=== PATIENT | male | born 1985 | race Caucasian/White ===

== ENCOUNTER 2016-06-27 20:55 | Inpatient (IN) | payer BC ==
--- NOTE | ~2016-06-27 | DS ---
Unit #: [id number] #: [id number] Patient: BAY DORSEY [id number] [place] [address] [id number] I MR#: [id number] NAME: BAY DORSEY ROOM: [facility] Age: 31 Sex: M Admission Date: 06/27/2016 : 1985 Discharge Date: Attending Physician: Rose Wallace M.D. Primary Care Physician: Primary Care Physician No DISCHARGE SUMMARY IDENTIFYING DATA Mr. Dorsey is a 31-year-old single white male, who is a resident of [place], [place] and was self-referred to the hospital on a voluntary basis. DISCHARGE DIAGNOSES Psychiatric: Alcohol dependence, moderate, in acute withdrawal; alcohol-induced mood disorder. Medical: Hypertension. Stressors: Moderate psychosocial stressors. HISTORY OF PRESENT ILLNESS Please see initial psychiatric evaluation for details. PAST PSYCHIATRIC HISTORY Please see initial psychiatric evaluation for details. PAST MEDICAL HISTORY Please see initial psychiatric evaluation for details. HOSPITAL COURSE The patient was admitted to the adult chemical dependency unit at [facility] yaneli Re[facility] and was oriented to the hospital environment. Routine p.r.n. medications were initiated, and he was started back on his home medications. Medications were adjusted and was closely monitored. He was taking medications regularly and was tolerating them fairly well and was able to show a decent therapeutic response and was willing to continue treatment on an outpatient basis. DISCHARGE MEDICATIONS Zestril 20 mg a day for hypertension, and Oretic 12.5 mg a day for hypertension. DISCHARGE CONDITION Stable. PROGNOSIS Fair. Dictated by... Rose Wallace M.D. IAA/modl Unit #: [id number] #: [id number] Patient: BAY DORSEY TD: 06/30/2016 06:47 JOB #: [id number] DISCHARGE SUMMARY Page 1 of 1 X Rose Wallace MD X DISCHARGE SUMMARY
--- NOTE | ~2016-06-27 | PN ---
Unit #: [id number] #: [id number] Patient: BAY DORSEY [id number] [facility] [address] [place] [address] [id number] I MR#: [id number] NAME: BAY DORSEY ROOM: P174 Age: 31 Sex: M Admission Date: 06/27/2016 : 1985 Attending Physician: Rose Wallace M.D. Admitting Physician: Rose Wallace M.D. Primary Care Physician: Primary Care Physician Evie ARTEAGA PROGRESS NOTES DATE 06/29/2016 DISCUSSION Mr. Dorsey is a 31-year-old white male who was seen today and chart was reviewed and case was discussed with the staff. He has been doing fairly well and reports that he feels he is coming out of the detox without any complications. He has been taking medications and tolerating them fairly well with no reported side effects. MENTAL STATUS EXAMINATION Young white male who was casually dressed with fair personal hygiene and appears to be in no acute distress or discomfort. He was awake and alert on interaction with intact orientation. His mood was anxious with congruent affect. He denies any suicidal or homicidal ideations and also denies any auditory or visual hallucinations. His insight and judgement remains slightly impaired. TREATMENT PLAN 1. Will continue on his current medications and treatment protocol. Will monitor his response and make further adjustments as needed. 2. Will continue to follow up. Dictated by... Rose Wallace M.D. IAA/bam TD: 06/29/2016 15:38 JOB #: [id number] Unit #: [id number] #: [id number] Patient: BAY DORSEY JENNI PROGRESS NOTES Page 1 of 1 X Rose Wallace MD PROGRESS NOTE
--- NOTE | ~2016-06-27 | PA ---
Unit #: [id number] #: [id number] Patient: BAY DORSEY [id number] [facility] [address] [place] [address] [id number] MR#: [id number] NAME: BAY DORSEY ROOM: P174 Age: 31 Sex: M Admission Date: 06/27/2016 : 1985 Date of Assessment: Attending Physician: Rose Wallace M.D. Admitting Physician: Rose Wallace M.D. Primary Care Physician: Primary Care Physician No PSYCHIATRIC ASSESSMENT IDENTIFYING DATA Mr. Dorsey is a 31-year-old white male, who is a resident of [place], [place] and was self-referred to the hospital on a voluntary basis. CHIEF COMPLAINT "My alcohol abuse." HISTORY OF PRESENT ILLNESS Mr. Dorsey is a 31-year-old white male, who was self-referred to the hospital. Upon presentation, he reports significant history of alcohol abuse and had a blood alcohol level of 0.058 and a CIWA score of 16, stating that he has been drinking approximately 12 pack of beer and a fourth pint of vodka a day for the past 3 years and has significant withdrawal symptoms with shakes and stress and difficulty concentrating, racing thoughts, and feelings of burning sensation like "pins and needles." He reports that he drank a pint of vodka today and reports consuming 2 pain pills and 2 days ago attempted to self detox and also reports increasing depression, feelings of hopelessness and helplessness, and suicidal ideation with a plan to shoot himself on the head with a gun, was seen to be a danger to self and as such, recommendation for inpatient level of care was made and the patient was transferred to us. SUBSTANCE ABUSE HISTORY The patient reports history of alcohol, opioid and amphetamine abuse and the alcohol appears to be his drug of choice and reports that he has been drinking regularly and heavily. PAST PSYCHIATRIC HISTORY The patient has had a history of inpatient chemical dependency and rehabilitation treatment in [place]. Review of the medical records indicate currently he is not active in any treatment program, is not seeing a psychiatrist, and is not taking any psychotropic medications. PAST MEDICAL HISTORY Hypertension. ALLERGIES No known medication allergies. PERSONAL AND SOCIAL HISTORY A 31-year-old white male, who reports that he is single, unemployed, and lives with his sister and sister's boyfriend and is currently unemployed Unit #: [id number] #: [id number] Patient: BAY DORSEY and reports poor social support system. MENTAL STATUS EXAMINATION Young white male, who was casually dressed with fair personal hygiene, appears to be in no acute distress or discomfort. He was awake and alert on interaction with intact orientation to time, place, and person. His mood was anxious and depressed with a congruent affect. Speech was slow and restricted in content. His thought processes were disorganized with some looseness of associations and suicidal ideations. His insight and judgment remain significantly impaired. DIAGNOSTIC IMPRESSION Psychiatric: Alcohol dependence, moderate and acute withdrawals; alcohol-induced mood disorder. Medical: Hypertension. Stressors: Moderate psychosocial stressors. TREATMENT PLAN 1. The patient has presented with a history of substance abuse and mood disorder, and has been decompensating and will need inpatient hospitalization for detoxification, safety, and stabilization. We will start him on detox protocol. We will monitor for any worsening withdrawal symptoms. 2. Supportive therapy was provided to the patient. 3. Safe, structured, and nourishing environment will be provided. ESTIMATED LENGTH OF STAY 5 to 7 days. ABILITY TO HELP SELF Limited. WILLINGNESS TO HELP SELF The patient appears to be willing to help self. STRENGTHS 1. Communicative. 2. Cooperative. PROBLEMS 1. Chronic dysphoric symptoms. 2. Chronic chemical dependency. 3. Poor social support system. DISCHARGE CRITERIA This will be contingent upon the patient's ability to go through detox without having any significant withdrawal symptoms and his ability to stay safe to himself, particularly after discharge from the hospital. Dictated by... Romelia Mathew/nathanael TD: 06/28/2016 06:49 JOB #: [id number] Unit #: [id number] #: [id number] Patient: BAY DORSEY PSYCHIATRIC ASSESSMENT Page 1 of 1 X Rose Wallace MD X PSYCHIATRIC ASSESSMENT
--- NOTE | ~2016-06-27 | HP ---
Unit #: [id number] #: [id number] Patient: OLIVER STANLEY [id number] [place] [address] [id number] I MR#: [id number] NAME: OLIVER STANLEY ROOM: P174 Age: 31 Sex: M Admission Date: 06/27/2016 : 1985 Attending Physician: Rose Wallace M.D. Admitting Physician: Rose Wallace M.D. Primary Care Physician: Primary Care Physician No HISTORY AND PHYSICAL HISTORY OF PRESENT ILLNESS Oliver is a 31 year old admitted to [facility] because of his abuse of alcohol. He is detoxing. PAST MEDICAL HISTORY 1. Long history of alcohol abuse. 2. High blood pressure. 3. Degenerative disc disease. PAST SURGICAL HISTORY Nothing reported. ALLERGIES No known drug allergies. SOCIAL HISTORY Smokes 1 pack per day. Drinks 2 pints of liquor on a daily basis and admits to occasionally abusing opioids and benzodiazepines. FAMILY HISTORY Medically noncontributory. REVIEW OF SYSTEMS CONSTITUTIONAL: No fever or chills. HEENT: Denies any sore throat, ear pain or runny nose. CARDIOVASCULAR: Denies chest pain, irregular heart rhythm or palpitations. CHEST: Denies shortness of breath or cough. No hemoptysis. GASTROINTESTINAL: Denies nausea, vomiting, diarrhea or chronic constipation. ENDOCRINE: Denies history of increased thirst or urination. No recent significant weight loss or gain. GENITOURINARY: Denies dysuria, frequency, or hematuria. SKIN: Denies any rashes. HEMATOLOGIC: Denies history of increased bleeding or bruising. MUSCULOSKELETAL: Denies any hot, swollen joints. No generalized muscle pain. NEUROLOGIC: Denies problems with vision or speech. No frequent, severe headaches. No numbness, tingling or weakness in any extremities. Denies loss of bladder or bowel control. CURRENT MEDICATIONS 1. Detox protocol. 2. Norvasc 10 mg daily. Unit #: [id number] #: [id number] Patient: OLIVER STANLEY 3. HCTZ 12.5 mg daily. 4. Zestril 20 mg daily. PHYSICAL EXAMINATION GENERAL: Alert, well-nourished, in no apparent distress. VITAL SIGNS: Blood pressure 146/104, heart rate 80, respirations 16, temperature 98.6. WEIGHT: 185. HEIGHT: 6 feet 0 inches. SKIN: Warm and dry without rash or lesion. HEENT: Normocephalic. TMs not viewed. Oral and nasal passages clear. Conjunctivae clear. PERRLA. EOMs intact. NECK: Supple without lymphadenopathy or thyromegaly. HEART: Regular rate and rhythm without murmur. LUNGS: Clear. ABDOMEN: Soft, nontender. : Not done. EXTREMITIES: No evidence of cyanosis, clubbing or edema. Moves all without focal deficit. NEUROLOGICAL: Grossly within normal limits. Cranial Nerves: II: Visual cannon are intact. III, IV AND : Extraocular movements are intact. Pupils are equal, round and reactive to light. V: Facial sensation is grossly normal. VII: Facial movements and expression are normal. VIII: Auditory acuity grossly intact. IX, X: Uvula is midline. Phonation is normal. XI: Patient shrugs shoulders and turns head normally. XII: Tongue protrudes in the midline. Sensory and Motor Function: Sensory and motor sensation is grossly normal. Motor: moves all extremities well. Coordination: Gait is normal. Deep Tendon Reflexes: Intact. IMPRESSION Psychiatric admission. RECOMMENDATIONS PSYCHIATRIC: Per psychiatrist. MEDICAL: See no contraindications to participate in facility's activities. MEDICAL PROGNOSIS Good. MEDICAL CONDITION Stable. Dictated by... Landon ZapataAMae-Cass. for Romelia Grande/bam TD: 06/28/2016 18:53 JOB #: [id number] Unit #: [id number] #: [id number] Patient: OLIVER STANLEY HISTORY AND PHYSICAL Page 1 of 1 X Luisa Hamilton HISTORY AND PHYSICAL
[~2016-06-27 20:55] MED LIST: ORUDIS75 M1 PO
[2016-06-28 12:41] LABS: ALBUMIN SERUM 4.3 g/dL (3.5-5.0); BILIRUBIN,TOTAL 1.4 mg/dL (0.2-2.0); CREATININE SERUM 0.9 mg/dL (0.6-1.4); GLOM FILT RATE Estimated 113.4 mL/min (>60); POTASSIUM 3.2 mmol/L (3.5-5.1); PROTEIN TOTAL SERUM 7.1 g/dL (6.0-8.3)
[2016-06-28 15:55] LABS: EOSINOPHIL# 0.1 X10e3 (0-0.7); EOSINOPHIL% 1.3 % (0.0-7.0); HEMATOCRIT 47.7 % (38.0-50.0); HEMOGLOBIN 16.4 gm/dL (13.0-16.0); LYMPHOCYTE# 0.8 X10e3 (1.0-3.5); LYMPHOCYTE% 17.6 % (17.0-45.0); MEAN CELL VOLUME 104.8 FL (83-96); MEAN CORPUSCULAR HEMOGLOBIN 36.1 PG (28-34); MEAN CORPUSCULAR HGB CONC 34.4 g/dL (30-36); MEAN PLATELET VOLUME 9.4 FL (6.5-11.5); MONOCYTE# 0.3 X10e3 (0-1.0); MONOCYTE% 7.7 % (3.0-12.0); NEUTROPHIL# 3.2 X10e3 (1.5-7.1); NEUTROPHIL% 72.4 % (40-75); PLATELET COUNT 141 X10e3 (140-420); RED BLOOD COUNT 4.55 X10e (3.90-5.60); RED CELL DISTRIBUTION WIDTH 12.8 % (11.0-15.5); WHITE BLOOD COUNT 4.4 X10e3 (4.0-10.5)
[2016-06-28 15:56] LABS: DIFF IND NO
== END 2016-06-30 11:05 | disposition home or self-care (01) | DRG 897 ==
LOC: P1E 20:55
PROVIDERS: Psychiatry & Neurology Psychiatry
PROC: HZ2ZZZZ Detoxification Services for Substance Abuse Treatment (ICD-10-PCS; principal; 2016-06-27)
DX: F10.239 Alcohol dependence with withdrawal, unspecified (principal); F10.24 Alcohol dependence with alcohol-induced mood disorder; I10 Essential (primary) hypertension; F17.210 Nicotine dependence, cigarettes, uncomplicated
CPT/HCPCS: 80053; 85025; 86592

== ENCOUNTER 2016-07-23 08:00 | Inpatient (IN) | payer BC ==
--- NOTE | ~2016-07-23 | PN ---
Unit #: [id number] #: [id number] Patient: BAY STANLEY [id number] [facility] [address] [place] [address] [id number] I MR#: [id number] NAME: BAY STANLEY ROOM: P180 Age: 31 Sex: M Admission Date: 07/23/2016 : 1985 Attending Physician: Rose Wallace M.D. Admitting Physician: Rose Wallace M.D. Primary Care Physician: Primary Care Physician Evie FISHMAN NOTES DATE 07/25/2016 DISCUSSION Mr. Stanley is a 31-year-old, white male who was seen today and chart was reviewed and case was discussed with the staff. He has been anxious, withdrawn and rather seclusive to himself. Meanwhile, he has been cooperative with the treatment recommendations. He has been taking the medication and tolerating them fairly well with no reported side effects. MENTAL STATUS EXAM Young white male who was casually dressed with fair personal hygiene, appears to be in no acute distress or discomfort. He was awake and alert on interaction with intact orientation. His mood was anxious with congruent affect. He denies any suicidal or homicidal ideation. His insight and judgement remains slightly impaired. TREATMENT PLAN 1. We will continue him on his current medications and treatment protocol. We will monitor his response to medications and make further adjustments as needed. 2. We will continue to follow up. Dictated by... Romelia Mathew/florencia TD: 07/25/2016 22:58 JOB #: [id number] Unit #: [id number] #: [id number] Patient: BAY STANLEY ZEADRIANNE PROGRESS NOTES Page 1 of 1 X Rose Wallace MD PROGRESS NOTE
--- NOTE | ~2016-07-23 | PN ---
Unit #: [id number] #: [id number] Patient: BAY STANLEY [id number] [facility] [address] [place] [address] [id number] I MR#: [id number] NAME: BAY STANLEY ROOM: P180 Age: 31 Sex: M Admission Date: 07/23/2016 : 1985 Attending Physician: Rose Wallace M.D. Admitting Physician: Rose Wallace M.D. Primary Care Physician: Primary Care Physician Evie FISHMAN NOTES DATE OF SERVICE 07/24/2016 DISCUSSION Mr. Stanley is a 31-year-old white male with substance abuse and mood disorder who was seen today. Chart was reviewed and case was discussed with the staff. He has been anxious, withdrawn, and seclusive to himself and does appear to be in some distress and discomfort. Meanwhile, he has been cooperative with the treatment recommendations and has been taking the medications and tolerating them fairly well with no reported side effects. MENTAL STATUS EXAMINATION Young white male who is casually dressed with fair personal hygiene, appears to be in no acute distress or discomfort. He was awake and alert with impaired attention and concentration. His mood is anxious with congruent affect. He denies any suicidal or homicidal ideations and also denies any auditory or visual hallucinations. His insight and judgment remain slightly impaired. TREATMENT PLAN 1. We will continue him on his current medications and detox protocol. We will monitor his response to the medications and make further adjustments as needed. 2. We will continue to follow up. Dictated by... Romelia Mathew/zack TD: 07/25/2016 08:53 JOB #: [id number] Unit #: [id number] #: [id number] Patient: BAY STANLEY ZEADRIANNE SRAVANTHI NOTES Page 1 of 1 X Rose Wallace MD PROGRESS NOTE
--- NOTE | ~2016-07-23 | PA ---
Unit #: [id number] #: [id number] Patient: BAY STANLEY [id number] [place] [address] [id number] I MR#: [id number] NAME: BAY STANLEY ROOM: P180 Age: 31 Sex: M Admission Date: 07/23/2016 : 1985 Date of Assessment: 07/23/2016 Attending Physician: Rose Wallace M.D. Admitting Physician: Rose Wallace M.D. Primary Care Physician: Primary Care Physician No PSYCHIATRIC ASSESSMENT DATE OF SERVICE 07/23/2016. IDENTIFYING DATA Mr. Stanley is a 31-year-old single white male, who is a resident of [place], [place], and was self-referred to the hospital on a voluntary basis with a blood alcohol level of 0.103. CHIEF COMPLAINT "I'm here for alcohol withdrawals and suicidal thoughts." HISTORY OF PRESENT ILLNESS Mr. Stanley is a 31-year-old white male with history of alcohol dependence and mood disorder, who was self-referred to the hospital. Upon presentation, he reports wanting detox from alcohol and having suicidal thoughts, though he stated "I want to shoot myself. I own a gun, but I gave it to my sister. I think about killing myself a lot, especially when I'm going through withdrawals. I have been an alcoholic since I have been a teenager and my dad is sick with cancer and that is why I drink and I started drinking at 15 years old and there is drug and alcohol abuse in both sides of my family and last time I tried to kill myself was last night, but I have daily thoughts. If I was not drinking, I probably would not want to kill myself." He does report increasing depression, anxiety, irritability, restlessness, feelings of hopelessness and helplessness, and suicidal ideations with intent and plan and was seen to be a danger to self and therefore recommendation for inpatient level of care for safety and stabilization was made. SUBSTANCE ABUSE HISTORY The patient reports history of alcohol dependence as he stated that he has been drinking since he was 15 years old and currently has been drinking a pint of vodka a day and denies any other drug abuse. PAST PSYCHIATRIC HISTORY The patient has had a history of inpatient chemical dependency treatment at [facility] yaneli [facility] in the past. Review of the medical records indicate currently he is not active in any treatment program, is not seeing a psychiatrist, and is not taking any psychotropic medications. PAST MEDICAL HISTORY Hypertension. ALLERGIES Unit #: [id number] #: [id number] Patient: BAY STANLEY No known medication allergies. CURRENT MEDICATIONS Norvasc. PERSONAL AND SOCIAL HISTORY A 31-year-old white male, who reports that he is single, unemployed, and lives with his sister and whojiun-do-hna and has poor social support system. MENTAL STATUS EXAMINATION Young white male, who was casually dressed with fair personal hygiene, appears to be in no acute distress or discomfort. He was awake and alert on interaction with intact orientation to time, place, and person. His mood was anxious and depressed with a congruent affect. His speech was slow and restricted in content. His thought processes were disorganized with some looseness of associations and suicidal ideations. His insight and judgment remain significantly impaired. DIAGNOSTIC IMPRESSION Psychiatric: Alcohol dependence, moderate, in acute withdrawals and alcohol-induced mood disorder. Medical: Hypertension. Stressors: Moderate psychosocial stressors. TREATMENT PLAN 1. The patient has presented with a history of mood disorder and substance abuse and dependence and has been decompensating and will need inpatient hospitalization for safety and stabilization. We will start him back on his home medications and we will adjust the medications and monitor response. 2. Supportive therapy was provided to the patient. 3. Safe, structured, and nourishing environment will be provided. ESTIMATED LENGTH OF STAY 5 to 7 days. ABILITY TO HELP SELF Limited. WILLINGNESS TO HELP SELF The patient appears to be willing to help self. STRENGTHS 1. Communicative. 2. Cooperative. PROBLEMS 1. Chronic dysphoric symptoms. 2. Chronic chemical dependency. 3. Poor social support system. DISCHARGE CRITERIA This will be contingent upon the patient's ability to go through detox without having any significant withdrawal symptoms as well as his ability to stay safe to himself, particularly after discharge from the hospital. Dictated by... Unit #: [id number] #: [id number] Patient: BAY STANLEY Romelia Mathew/nathaneal TD: 07/24/2016 23:12 JOB #: [id number] PSYCHIATRIC ASSESSMENT Page 1 of 1 X Rose Wallace MD PSYCHIATRIC ASSESSMENT
--- NOTE | ~2016-07-23 | PN ---
Unit #: [id number] #: [id number] Patient: BAY DORSEY [id number] [facility] [address] [place] [address] [id number] I MR#: [id number] NAME: BAY DORSEY ROOM: 80 Age: 31 Sex: M Admission Date: 07/23/2016 : 1985 Attending Physician: Rose Wallace M.D. Admitting Physician: Rose Wallace M.D. Primary Care Physician: Primary Care Physician Evie FISHMAN NOTES DATE OF SERVICE 07/26/2016 DISCUSSION Mr. Dorsey is a 31-year-old white male who was seen today. Chart was reviewed and case was discussed with the staff. The patient has been anxious, withdrawn, and rather seclusive to himself. Meanwhile, he has been cooperative with the treatment recommendations and has been taking the medications and tolerating them fairly well with no reported side effects. MENTAL STATUS EXAMINATION Young white male who is casually dressed with fair personal hygiene, appears to be in no acute distress or discomfort. He was awake and alert on interaction with intact orientation. His mood is anxious, withdrawn. He denies any suicidal or homicidal ideations and also denies any auditory or visual hallucinations. His insight and judgment remain slightly impaired. TREATMENT PLAN 1. We will continue him on his current medications and detox protocol. We will monitor his response to the medications and make further adjustments as needed. 2. We will continue to follow up. Dictated by... Rose Wallace M.D. IAA/latashag TD: 07/26/2016 08:43 JOB #: [id number] Unit #: [id number] #: [id number] Patient: BAY DORSEY ZEADRIANNE PROGRESS NOTES Page 1 of 1 X Rose Wallace MD PROGRESS NOTE
--- NOTE | ~2016-07-23 | DS ---
Unit #: [id number] #: [id number] Patient: BAY STANLEY [id number] [facility] [place] [address] [id number] MR#: [id number] NAME: BAY STANLEY ROOM: [facility] Age: 31 Sex: M Admission Date: 07/23/2016 : 1985 Discharge Date: 07/27/2016 Attending Physician: Rose Wallace M.D. Primary Care Physician: Primary Care Physician No DISCHARGE SUMMARY IDENTIFICATION DATA Mr. Stanley is a 31-year-old single white male who is a resident of [place], [place], and was self-referred to the hospital on voluntary basis and with blood alcohol level of 0.103. DISCHARGE DIAGNOSES PSYCHIATRIC: Alcohol dependence, moderate, in acute withdrawal. Alcohol-induced mood disorder. MEDICAL: Hypertension. STRESSORS: Moderate psychosocial stressors. HISTORY OF PRESENT ILLNESS Same as in initial psychiatric evaluation. PAST PSYCHIATRIC HISTORY Same as in initial psychiatric evaluation. PAST MEDICAL HISTORY Same as in initial psychiatric evaluation. HOSPITAL COURSE The patient was admitted to the adult chemical dependence and psychiatric unit at [facility] fausto [facility] and was oriented to the hospital environment. Routine p.r.n. medications were initiated, and started back on his home medications, and alcohol detox protocol was initiated, and he was maintained on his Norvasc 10 mg a day and Remeron 50 mg at bedtime was initiated as a sedating antidepressant, and he was closely monitored. He was taking the medications and he was tolerating it fairly well and able to show decent therapeutic response. As such it was decided that he will be discharged home. We will continue treatment on outpatient basis. DISCHARGE MEDICATIONS 1. Remeron 15 mg at bedtime for depression. 2. Norvasc 10 mg a day for hypertension. CONDITION AT DISCHARGE Stable. PROGNOSIS Fair. Dictated by... Unit #: [id number] #: [id number] Patient: BAY STANLEY Romelia Mathew/bzg TD: 07/27/2016 07:20 JOB #: [id number] DISCHARGE SUMMARY Page 1 of 1 X Rose Wallace MD DISCHARGE SUMMARY
--- NOTE | ~2016-07-23 | HP ---
Unit #: [id number] #: [id number] Patient: BAY STANLEY [id number] [place] [address] [id number] MR#: [id number] NAME: BAY STANLEY ROOM: 80 Age: 31 Sex: M Admission Date: 07/23/2016 : 1985 Attending Physician: Rose Wallace M.D. Admitting Physician: Rose Wallace M.D. Primary Care Physician: Primary Care Physician No HISTORY AND PHYSICAL HISTORY OF PRESENT ILLNESS The patient is a 31-year-old male, who states that he is here for alcohol withdrawal. He drinks approximately one pint of alcohol everyday at least. PAST MEDICAL HISTORY Significant for hypertension. PAST SURGICAL HISTORY None. ALLERGIES None. SOCIAL HISTORY Positive for smoking, positive for alcohol, positive for remote drug use. FAMILY HISTORY Noncontributory. REVIEW OF SYSTEMS CONSTITUTIONAL: No fever or chills. HEENT: Denies any sore throat, ear pain or runny nose. CARDIOVASCULAR: Denies chest pain, irregular heart rhythm or palpitations. CHEST: Denies shortness of breath or cough. No hemoptysis. GASTROINTESTINAL: Denies nausea, vomiting, diarrhea or chronic constipation. ENDOCRINE: Denies history of increased thirst or urination. No recent significant weight loss or gain. GENITOURINARY: Denies dysuria, frequency, or hematuria. SKIN: Denies any rashes. HEMATOLOGIC: Denies history of increased bleeding or bruising. MUSCULOSKELETAL: Denies any hot, swollen joints. No generalized muscle pain. NEUROLOGIC: Denies problems with vision or speech. No frequent, severe headaches. No numbness, tingling or weakness in any extremities. Denies loss of bladder or bowel control. PHYSICAL EXAMINATION GENERAL: Alert, oriented, no acute distress. VITAL SIGNS: Temperature 98.3, heart rate 105, respirations 18, and blood pressure 143/94. HEIGHT: 6 feet. WEIGHT: 185 pounds. Unit #: [id number] #: [id number] Patient: BAY STANLEY SKIN: Warm and dry without rash or lesion. Tattoo bilateral lower extremities, abdomen, right arm. Scar to the left upper quadrant. Birthmark to the midline back and a bruise to the right buttock. HEENT: Normocephalic. TMs not viewed. Oral and nasal passages clear. Conjunctivae clear. PERRLA. EOMs intact. NECK: Supple without lymphadenopathy or thyromegaly. HEART: Regular rate and rhythm without murmur. LUNGS: Clear. ABDOMEN: Soft, nontender. : Not done. EXTREMITIES: No evidence of cyanosis, clubbing or edema. Moves all without focal deficit. NEUROLOGICAL: Grossly within normal limits. Cranial Nerves: II: Visual cannon are intact. III, IV AND : Extraocular movements are intact. Pupils are equal, round and reactive to light. V: Facial sensation is grossly normal. VII: Facial movements and expression are normal. VIII: Auditory acuity grossly intact. IX, X: Uvula is midline. Phonation is normal. XI: Patient shrugs shoulders and turns head normally. XII: Tongue protrudes in the midline. Sensory and Motor Function: Sensory and motor sensation is grossly normal. Motor: moves all extremities well. Coordination: Gait is normal. Deep Tendon Reflexes: Intact. IMPRESSION Psychiatric admission. RECOMMENDATIONS Psychiatric, per psychiatrist. MEDICAL No contraindications to participating in facility's activities. MEDICAL PROGNOSIS Good. Dictated by... Eliana Wilson/chanel TD: 07/24/2016 12:23 JOB #: [id number] HISTORY AND PHYSICAL Page 1 of 1 X Any Marquez APR X HISTORY AND PHYSICAL
[2016-07-24 10:16] LABS: URINE APPEARANCE CLEAR; URINE BLOOD NEG (NEG); URINE COLOR DK YELLOW; URINE GLUCOSE NEG (NEG); URINE KETONE NEG (NEG); URINE LEUKOCYTE ESTERASE NEG (NEG); URINE NITRATE NEG (NEG); URINE PH 7.5 (5-8); URINE PROTEIN TRACE (NEG); URINE SPECIFIC GRAVITY 1.027 (1.003-1.035)
[2016-07-24 10:22] LABS: URINE BILIRUBIN NEG (NEG)
[2016-07-24 10:27] LABS: ALBUMIN SERUM 4.1 g/dL (3.5-5.0); BILIRUBIN,TOTAL 1.8 mg/dL (0.2-2.0); BUN/CREATININE RATIO 18.75; CALCIUM SERUM 9.5 mg/dL (8.4-10.2); CREATININE SERUM 0.8 mg/dL (0.6-1.4); GLOM FILT RATE Estimated 119.1 mL/min (>60); POTASSIUM 3.5 mmol/L (3.5-5.1); PROTEIN TOTAL SERUM 6.4 g/dL (6.0-8.3)
[2016-07-24 10:52] LABS: AMPHETAMINE NEG (NEG); BARBITURATES NEG (NEG); BENZODIAZEPINES POS (NEG); COCAINE NEG (NEG); MARIJUANA NEG (NEG); OPIATES NEG (NEG); TRICYCLIC ANTIDEPRESSANTS NEG (NEG); U METHADONE NEG (NEG)
[2016-07-24 11:24] LABS: BASOPHIL% 1.1 % (0-2.5); DIFF IND NO; EOSINOPHIL# 0.1 X10e3 (0-0.7); EOSINOPHIL% 2.2 % (0.0-7.0); HEMATOCRIT 46.4 % (38.0-50.0); LYMPHOCYTE# 1.9 X10e3 (1.0-3.5); LYMPHOCYTE% 47.2 % (17.0-45.0); MEAN CELL VOLUME 102.6 FL (83-96); MEAN CORPUSCULAR HEMOGLOBIN 35.5 PG (28-34); MEAN CORPUSCULAR HGB CONC 34.6 g/dL (30-36); MEAN PLATELET VOLUME 10.3 FL (6.5-11.5); MONOCYTE# 0.3 X10e3 (0-1.0); MONOCYTE% 8.4 % (3.0-12.0); NEUTROPHIL# 1.7 X10e3 (1.5-7.1); NEUTROPHIL% 41.1 % (40-75); PLATELET COUNT 148 X10e3 (140-420); RED BLOOD COUNT 4.52 X10e (3.90-5.60); RED CELL DISTRIBUTION WIDTH 12.8 % (11.0-15.5); WHITE BLOOD COUNT 4.1 X10e3 (4.0-10.5)
== END 2016-07-27 09:53 | disposition home or self-care (01) | DRG 897 ==
LOC: P1E 10:33
PROVIDERS: Psychiatry & Neurology Psychiatry
PROC: HZ2ZZZZ Detoxification Services for Substance Abuse Treatment (ICD-10-PCS; principal; 2016-07-23)
DX: F10.230 Alcohol dependence with withdrawal, uncomplicated (principal); R45.851 Suicidal ideations; F10.24 Alcohol dependence with alcohol-induced mood disorder; I10 Essential (primary) hypertension; F17.210 Nicotine dependence, cigarettes, uncomplicated
CPT/HCPCS: 80053; 80307; 81003; 85025; 86592